=== PATIENT | female | born 1950 | race Caucasian/White ===

== ENCOUNTER 2017-08-01 07:58 | Emergency (ER) | payer OTHER ==
[~2017-08-01] VITALS: Ht 165.1 cm; Wt 113.4 kg
[2017-08-01 08:01] VITALS: BP 194/99
[2017-08-01] MEDS ORDERED: NAPROXEN375 MG PO (08:54)
[2017-08-01] MEDS ORDERED: TRAMADOL 50 MG50 MG PO (08:54)
== END 2017-08-01 09:00 | disposition home or self-care (01) ==
LOC: ER 07:58
DX: S82.891A Other fracture of right lower leg, initial encounter for closed fracture (principal); W01.0XXA Fall on same level from slipping, tripping and stumbling without subsequent striking against object, initial encounter; Y93.01 Activity, walking, marching and hiking; Y92.89 Other specified places as the place of occurrence of the external cause; Y99.8 Other external cause status